=== PATIENT | male | born 1975 | race Caucasian/White ===

== ENCOUNTER 2018-09-17 21:53 | Emergency (ER) | payer OTHER ==
[~2018-09-17] VITALS: Ht 175.3 cm; Wt 100.0 kg
[2018-09-17 21:58] VITALS: Ht 175.3 cm; Wt 100.0 kg
[2018-09-17] MEDS ORDERED: LIDOCAINE/MYLANTA 40 ML BTL PO ONE (22:00)
[2018-09-17] MEDS ORDERED: FAMOTIDINE 20 MG TAB PO ONE (22:00)
[2018-09-17 22:01] VITALS: BP 159/97; PULSE 68; RESP 16
--- NOTE | 2018-09-18 00:03 | ERD ---
ER Documentation Chief Complaint Chief Complaint OK TO BOOK AND RIGHT LEG SWELLING HPI This is a 43-year-old male with a past medical history of polysubstance abuse including meth and heroin who is presenting in police custody for an evaluation to clear him for booking. The patient has reportedly had several weeks of right lower extremity swelling. The patient reports that this waxes and wanes. The patient is never injected into the leg. It is become more warm, red and swollen over the last week. He reports this is happened before, but he has never been diagnosed with anything. The patient does not endorse any pain. He does not endorse any prolonged trips or travel. He has not been bedbound for any reason. He does not endorse any history of DVT or PE. He does not endorse any chest pain or pleuritic pain or shortness of breath. The patient does also endorse chronic epigastric pain, exacerbated today. The patient has not been able to take his antacid due to being incarcerated. The patient denies feeling sick recently. The patient denies fever or chills. The patient has had no headache or vision changes. The patient does not endorse neck or back pain. The patient denies lightheadedness or dizziness. The patient has had no chest pain or trouble breathing. The patient denies nausea or vomiting. The patient denies changes to bowel movements or urination. The patient has had no focal deficits. The patient has had no weakness or numbness or tingling to the face or extremities. ROS All systems reviewed and are negative except as per history of present illness. PMhx/Soc Medical and Surgical Hx: pt denies Medical Hx, pt denies Surgical Hx History of Surgery: No Hx Neurological Disorder: No Hx Respiratory Disorders: No Hx Cardiac Disorders: No Hx Psychiatric Problems: No Hx Miscellaneous Medical Probl: No Hx Alcohol Use: Yes Hx Substance Use: Yes (METHAMPHETAMINE, MARIJUANA) Hx Tobacco Use: Yes Smoking Status: Current every day smoker FmHx Family History: No diabetes Physical Exam Vitals Vital Signs Date Temp Pulse Resp B/P (MAP) Pulse Ox O2 O2 Flow FiO2 Time Delivery Rate 09/17/18 97.5 68 16 159/97 100 Room Air 22:01 (117) 09/17/18 97.5 68 16 159/97 100 21:58 (117) Physical Exam Const: No acute distress Head: Atraumatic Eyes: Normal Conjunctiva ENT: Normal External Ears, Nose and Mouth. Neck: Full range of motion. No meningismus. Resp: Clear to auscultation bilaterally Cardio: Regular rate and rhythm, no murmurs Abd: Soft, non distended. Mild epigastric tenderness. Normal bowel sounds Skin: No petechiae or rashes Back: No midline or flank tenderness Ext: No cyanosis. 2+ pitting right lower extremity edema with warmth, erythema and induration to the loyd, non-circumferential. Neur: Awake and alert Psych: Normal Mood and Affect Results 24 hrs Current Medications Medications Dose Sig/Jerrell Start Time Status Last (Trade) Ordered Route PRN Stop Time Admin Dose Reason Admin Famotidine 20 mg ONCE ONCE 09/17/18 DC 09/17/18 (Pepcid) PO 22:00 22:07 09/17/18 22:02 40 ml ONCE ONCE 09/17/18 DC 09/17/18 Miscellaneous PO 22:00 22:07 Medication 09/17/18 22:02 (Gi Cocktail (2)) Procedures/MDM MDM The patient's presentation warrants further investigation. Previous medical records, if available, were reviewed. IMAGING Imaging and Radiology interpretation reviewed. Doppler right lower extremity FINDINGS: The right common femoral, superficial femoral and popliteal veins are normally compressible throughout. Color flow demonstrates normal filling of the vessel. Normal waveforms are visualized and there is normal response to augmentation. The calf veins are visualized and are equally unremarkable. IMPRESSION: No evidence of a deep vein thrombosis involving the right lower extremity. Electronically viewed and signed by Lucio Crump MD, MD on 09/17/2018 22:52 TREATMENT/DISPOSITION The patient's primary complaint is right lower extremity edema. I do suspect cellulitis. The patient's ultrasound study does not reveal a DVT. I do not see any evidence of abscess. I have low suspicion for peripheral vascular disease. The patient is neurovascularly intact. The patient also endorses chronic epigastric pain for which he has not been taking his Intacs is due to incarceration. The patient was given a GI cocktail and Pepcid with relief of his pain. The patient does not have any evidence of peritonitis. The patient does not have clinical symptoms concerning for mesenteric ischemia or ischemic colitis. The patient does not have right upper quadrant tenderness, and I have low suspicion for gallstones, cholecystitis or biliary colic. The patient does not have left upper quadrant tenderness. I have low suspicion for pancreatitis. The patient does not have any right lower quadrant tenderness, or periumbilical tenderness. I have low suspicion for appendicitis. The patient does not have suprapubic tenderness. I have decreased suspicion for cystitis. The patient does not have any left lower quadrant tenderness, and I have low suspicion for diverticulosis or diverticulitis. The patient does not have any flank tenderness. The patient does not have gross hematuria. I have decreased suspicion for nephrolithiasis or renal colic. The patient does not have any palpable pulsatile mass or severe abdominal pain radiating to the back. I have low suspicion for aortic aneurysm, dissection or rupture. DISCHARGE Upon reevaluation of the patient, symptoms have improved. No emergent diagnoses were identified. At this time, I feel that the patient stable for discharge. The patient was instructed to follow-up with a primary care physician in 1-3 days. The patient will be given strict precautions with which to return to the emergency department. Prescriptions: Zofran, Pepcid, Keflex The patient's blood pressure was elevated at greater than 120/80 while in the emergency department. The patient was otherwise stable with no evidence of hypertensive urgency or emergency. The patient does not require admission for blood pressure control. I have discussed with the patient the risks of hypertension. I have instructed the patient to return to the ER for any new or worsening symptoms including chest pain, shortness of breath, headache, blurred vision, confusion, nausea, vomiting or LOC. I have advised the patient to follow up with the primary care physician for outpatient monitoring and treatment for hypertension in 1-3 days. Disclaimer: Inadvertent spelling and grammatical errors are likely due to EHR/dictation software use and do not reflect on the overall quality of patient care. Note that the electronic time recorded on this note does not necessarily reflect the actual time of the patient encounter. Departure Diagnosis: Primary Impression: Cellulitis of right lower extremity without foot Additional Impressions: Edema of right lower extremity Epigastric pain Condition: Stable Patient Instructions: Cellulitis, Epigastric Pain (Uncertain Cause) Additional Instructions: Thank you for for coming to [facility] for your care today. Please ask your nurse or provider if you have questions about your care today and do not leave until all your questions have been answered. Please use any m edications given as directed and follow-up with your doctor (or the doctor you were referred to) in the next 1-3 days. If you do not have a primary care doctor you may follow up at the [facility] or [facility] (listed below). You may also use motrin and tylenol as needed for fever and/or pain unless instructed otherwise by your provider or nurse. Indications for more urgent follow-up have been discussed, but you may return to the Emergency Department at ANY time for any worrisome or worsening symptoms. If you have abdominal pain, please know that no test or exam you received is perfect and you should follow up within 8 hours for continued pain. If you had any imaging studies today, such as an X-Ray or CT Scan, these studies will be reviewed later by a radiologist. You will be called if there are important findings that were not identified today, so make sure the contact information you provided at registration is correct. If you received any narcotic pain control medicine today, such as Vicodin, Morphine or Dilaudid, your coordination and judgment may be affected for a number of hours. Please do not drive or operate heavy machinery, and you may want someone to assist you at home. If you were given a prescription for narcotic medication, be aware that it is very addictive- use sparingly and only if necessary. PLEASE SEEK FURTHER EVALUATION AND MANAGEMENT AT YOUR DOCTORS OFFICE WITHIN THE NEXT 1-3 DAYS. IT IS YOUR RESPONSIBILITY TO MAKE AN APPOINTMENT FOR FOLOW-UP CARE. IF YOU HAVE A PRIMARY DOCTOR, PLEASE CALL THEIR OFFICE TO SCHEDULE AN APPOINTMENT FOR FOLLOW UP. IF YOU DO NOT HAVE A PRIMARY DOCTOR YOU CAN CALL OUR PHYSICIAN REFERRAL HOTLINE AT IF YOU CAN NOT AFFORD TO SEE A PHYSICIAN YOU CAN CHOSE FROM THE FOLLOWING [facility]: [facility] [address] [facility] [address] [facility] [place] [address] [facility] [address] [facility] [address] [facility]. [facility]. [address] TAMAR FERGUSON MD September 17, 2018 23:59
[2018-09-18] MEDS ORDERED: FAMO-96 PO (00:06)
[2018-09-18] MEDS ORDERED: CEPH-443 PO (00:06)
[2018-09-18] MEDS ORDERED: ONDA8TAB9 PO (00:06)
== END 2018-09-18 00:25 | disposition home or self-care (01) ==
LOC: E/R 21:53
DX: L03.115 Cellulitis of right lower limb (principal); F17.210 Nicotine dependence, cigarettes, uncomplicated; R10.13 Epigastric pain; R60.0 Localized edema
CPT/HCPCS: 93971